=== PATIENT | female | born 1955 | race Caucasian/White ===

== ENCOUNTER 2021-04-15 21:26 | Emergency (ER) | payer OTHER, MEDICARE | END 2021-04-15 23:03 | disposition home or self-care (01) | LOC: ER1 21:26 | DX: M25.561 Pain in right knee (principal); I10 Essential (primary) hypertension | CPT/HCPCS: 96372; 99283; J1885; J2270 ==

== ENCOUNTER → 2021-10-08 | Outpatient (CLI) | payer OTHER | LOC: KOH-I 15:40 | DX: S83.412A Sprain of medial collateral ligament of left knee, initial encounter (principal); M79.605 Pain in left leg; M17.12 Unilateral primary osteoarthritis, left knee | CPT/HCPCS: 73562 ==

== ENCOUNTER → 2021-10-17 | Outpatient (CLI) | payer OTHER | LOC: EMI 14:09 | DX: S83.412A Sprain of medial collateral ligament of left knee, initial encounter (principal); X58.XXXA Exposure to other specified factors, initial encounter; M17.12 Unilateral primary osteoarthritis, left knee; R93.6 Abnormal findings on diagnostic imaging of limbs | CPT/HCPCS: 73721 ==